=== PATIENT | male | born 1980 | race American Indian/Alaskan Native ===

== ENCOUNTER 2020-10-12 15:50 | Emergency (ER) | payer OTHER ==
[2020-10-12 16:23] VITALS: BP 148/105
--- NOTE | 2020-10-12 19:53 | Emergency Department Report ---
ED Neck Pain/Injury HPI - General Chief Complaint: Neck Pain/Injury Stated Complaint: PAINS IN NECK SHOULDER AND BACK Time Seen by Provider: 10/12/20 19:08 Mode of arrival: Ambulatory Limitations: No Limitations - History of Present Illness Initial Comments: This is a 40-year-old male with a past medical history of hypertension controlled with meds who presents to the ED complaining of neck pain radiating to the shoulder left-sided for the past couple of months. Patient states symptoms began couple months ago and he has been to see In [place] with no real resolved. Patient states that the pain is sharp in nature that comes in spasms down his neck to the shoulder and sometimes is fingers. Patient states sometimes he feels tingling sensation in the fingers. Patient states that pain is worsened with movement of the shoulder back and neck. Patient denies any fall or injuries recently. Patient does remember having a left shoulder injury earlier in his youth when he played football. Patient denies any chest pain, shortness of breath, difficulty breathing, nausea, vomiting diarrhea, headache or blurry vision. MD Complaint: neck pain Severity scale (0 -10): 8 Quality: burning, tingling Consistency: intermittent Worsens With: movement of extremity, movement of neck Associated Symptoms: none. denies: headache, weakness, vertigo, difficulty walking, difficulty swallowing, nausea - Related Data Previous Rx's Medication Instructions Recorded Last Taken Type Cyclobenzaprine [Flexeril] 10 mg PO QHS PRN #20 tablet 10/12/[address] [Rhiannon Mackay] 50 mg PO BID #30 tablet 10/12/20 Unknown Rx Allergies Allergy/AdvReac Type Severity Reaction Status Date / Time No Known Allergies Allergy Unverified 10/12/20 16:17 ED Review of Systems ROS: Stated complaint: PAINS IN NECK SHOULDER AND BACK Other details as noted in HPI Comment: All other systems reviewed and negative ED Past Medical Hx - Past Medical History Previous Medical History?: Yes Hx Hypertension: Yes - Surgical History Past Surgical History?: No - Social History Smoking Status: Never Smoker Substance Use Type: None - Medications Home Medications: Home Medications Medication Instructions Recorded Confirmed Last Taken Type Cyclobenzaprine [Flexeril] 10 mg PO QHS PRN #20 tablet 10/12/[address] [Rhiannon Mackay] 50 mg PO BID #30 tablet 10/12/20 Unknown Rx ED Physical Exam - General Limitations: No Limitations General appearance: alert, in no apparent distress - Head Head exam: Present: atraumatic, normocephalic - Eye Eye exam: Present: normal appearance - ENT ENT exam: Present: mucous membranes moist - Neck Neck exam: Present: normal inspection, tenderness (To the left sternocleidomastoid muscle), full ROM - Respiratory Respiratory exam: Present: normal lung sounds bilaterally. Absent: respiratory distress, chest wall tenderness - Cardiovascular Cardiovascular Exam: Present: regular rate, normal rhythm. Absent: systolic murmur, diastolic murmur, rubs, gallop - GI/Abdominal GI/Abdominal exam: Present: soft, normal bowel sounds. Absent: distended, tenderness - Rectal Rectal exam: Present: deferred - Extremities Exam Extremities exam: Present: normal inspection - Back Exam Back exam: Present: normal inspection, full ROM, tenderness (To palpation of the left upper back muscles.), muscle spasm, other (No cervical spinal tenderness) - Neurological Exam Neurological exam: Present: alert, oriented X3, CN II-XII intact, normal gait - Psychiatric Psychiatric exam: Present: normal affect, normal mood - Skin Skin exam: Present: warm, dry, intact, normal color. Absent: rash ED Course Vital Signs 10/12/20 16:21 Temperature 98.3 F Pulse Rate 82 Respiratory 16 Rate Blood Pressure 148/105 O2 Sat by Pulse 100 Oximetry ED Medical Decision Making - Medical Decision Making This 40-year-old male who presents to the ED with muscle spasms of the back secondary to cervical radiculopathy. Patient had no trauma patient is ambulatory without any problems. Speaking in clear sentences. Patient states pain is resolved with pain medication in the ED. Vital signs are normal he is in no acute distress. I did discuss with patient to follow-up with neurology/medical specialist. Vital signs are normal he is in no respiratory distress and understands instructions and states to follow-up.. Critical care attestation.: If time is entered above; I have spent that time in minutes in the direct care of this critically ill patient, excluding procedure time. ED Disposition Clinical Impression: Cervical radiculopathy, Muscle spasm, Arm paresthesia, left Disposition: DC-01 TO HOME OR SELFCARE Is pt being admited?: No Does the pt Need Aspirin: No Condition: Stable Instructions: Cervical Radiculopathy, [id number], Muscle Cramps and Spasms, [id number], Neuropathic Pain, Paresthesia, [id number] Additional Instructions: Make sure to follow up with the primary care physician as discussed. Take all your medications as you've been prescribed. If you have any worsening symptoms or develop new symptoms please return to ED immediately. Referrals: [facility] [Provider Group] - 3-5 Days [facility] [Provider Group] - 3-5 Days ANDRE DAILY MD [Staff Physician] - 3-5 Days Forms: Work/School Release Form(ED) Time of Disposition: 20:44
[2020-10-12] MEDS ORDERED: predniSONE 20 MG TAB PO ONE (19:54)
[2020-10-12] MEDS ORDERED: KETOROLAC 30 MG/1 ML INJ IM ONE (19:54)
== END 2020-10-12 21:05 | disposition home or self-care (01) ==
LOC: ED 15:50
DX: M54.12 Radiculopathy, cervical region (principal); R20.2 Paresthesia of skin; M62.838 Other muscle spasm; I10 Essential (primary) hypertension; Z79.899 Other long term (current) drug therapy
CPT/HCPCS: 96372; 99282; J1885; J7512